=== PATIENT | female | born 1965 | race Caucasian/White ===

== ENCOUNTER 2019-09-13 15:44 | Inpatient (IN) | payer BC ==
[~2019-09-13] VITALS: Ht 167.6 cm; Wt 54.5 kg
[2019-09-13 16:26] LABS: MEAN CORPUSCULAR HEMOGLOBIN 29.9 pg (27.0-34.8); MEAN CORPUSCULAR HGB CONC 33.2 g/dL (32.4-35.8); MEAN PLATELET VOLUME 7.5 fL (7.4-10.4); PLATELET COUNT 572 x10^3/uL (130-400); RED CELL DISTRIBUTION WIDTH 13.5 % (9.6-15.2)
[2019-09-13 16:28] LABS: MD YES
[2019-09-13 16:37] LABS: ALBUMIN 2.4 g/dL (3.4-5.0); ANION GAP 9 mmol/L (5-15); CALCIUM 8.9 mg/dL (8.5-10.1); CHLORIDE 97 mmol/L (98-107); CREATININE 0.73 mg/dL (0.55-1.02)
[2019-09-13 16:59] LABS: BAND#(MANUAL) 0.71 x10^3/uL; BANDS%(MANUAL) 3 % (0-7); LYMPH#(MANUAL) 0.71 x10^3/uL (1-3.4); LYMPHS% (MANUAL) 3 % (22-44); MONOS#(MANUAL) 0.71 x10^3/uL (0.3-2.7); MONOS% (MANUAL) 3 % (2-9); SEG#(MANUAL) 21.39 x10^3/uL (1.8-6.8); SEGS% (MANUAL) 91 % (42-75)
[2019-09-13 17:02] LABS: <PLATELET ESTIMATE> INCREASED; <PLT MORPHOLOGY> NORMAL PLT MORPH; ANISOCYTOSIS 1+; POLYCHROMASIA 1+
[2019-09-13] MEDS ORDERED: SODIUM CHLORIDE 0.9% 1,000 ML IV ONE ×2 (17:47→19:02)
--- NOTE | 2019-09-13 17:49 | NUR ---
PT FEBRILE, TACHYCARDIC, TACHYPNEIC. IV STARTED AND NS BOLUS INFUSING PER JOCELINE VILLAR. NO ORDERS FOR ABX YET. Addendum: 09/13/19 at 1749 by HBENSON SPO2 89-90% ON RA. O2 APPLIED AT 2L NC. PT C/O PAIN TO R CHEST. HX OF PNA IN PAST.
--- NOTE | 2019-09-13 18:13 | NUR ---
ERP AT NOW.
[2019-09-13] MEDS ORDERED: CEFTRIAXONE PMX 1GM/50ML 50 ML IVPB ONE (18:30)
[2019-09-13] MEDS ORDERED: AZITHROMYCIN 500 MG in SODIUM CHLORIDE 0.9% 250 ML IVPB ONE (18:30)
[2019-09-13] MEDS ORDERED: ALBUTEROL/IPRATROPIUM 2.5MG/0.5MG, 3 ML NPPB ONE (18:30)
[2019-09-13] MEDS ORDERED: SODIUM CHLORIDE 0.9% 1,000ML IVBOLUS ONE (18:30)
[2019-09-13] MEDS ORDERED: IBUPROFEN 600 MG TABLET PO ONE (18:30)
[2019-09-13] MEDS ORDERED: CEFTRIAXONE PMX 1GM/50ML 50 ML ONE (18:35)
[2019-09-13] MEDS ORDERED: ALBUTEROL/IPRATROPIUM 2.5MG/0.5MG, 3 ML ONE (18:36)
[2019-09-13] MEDS ORDERED: IBUPROFEN 200 MG TABLET ONE (18:42)
--- NOTE | 2019-09-13 18:50 | NUR ---
BREATHING TX GIVEN BY RT.
--- NOTE | 2019-09-13 19:20 | NUR ---
HOSPITALIST AT NOW. Addendum: 09/13/19 at 2019 by MELISSA ADMITTING MD ADVISED TO HOLD 2ND LITER NS THAT WAS ORDERED.
[2019-09-13] MEDS ORDERED: SODIUM CHLORIDE FLUSH 10ML SYR IVF PRN (19:30)
[2019-09-13] MEDS ORDERED: SODIUM CHLORIDE 0.9% 1,000 ML IV SCH (20:45)
[2019-09-13] MEDS ORDERED: ENALAPRILAT 1.25 MG/ML, 2ML IVPush PRN (21:00)
[2019-09-13] MEDS ORDERED: LIDODERM 5% PATCH TD PRN (21:00)
[2019-09-13] MEDS ORDERED: DOCUSATE 100 MG CAPSULE PO PRN (21:00)
[2019-09-13 21:09] VITALS: BP 99/59
[2019-09-13] MEDS: GUAIFENESIN ER 600 MG TABLET PO SCH (21:31)
[2019-09-13] MEDS: ENOXAPARIN 40 MG/0.4 ML SQ SCH (21:32)
[2019-09-13] MEDS: TEMAZEPAM 15 MG CAPSULE PO PRN (23:02)
[2019-09-13] MEDS: ACETAMINOPHEN 325 MG TABLET PO PRN (23:02)
[2019-09-14 01:49] VITALS: BP 98/64
[2019-09-14] MEDS: ACETAMINOPHEN 325 MG TABLET PO PRN ×4 (05:06→23:45)
[2019-09-14 05:26] LABS: MEAN CORPUSCULAR HGB CONC 33.2 g/dL (32.4-35.8); MEAN CORPUSCULAR VOLUME 90.2 fL (80-100); MEAN PLATELET VOLUME 7.5 fL (7.4-10.4); PLATELET COUNT 501 x10^3/uL (130-400); RED BLOOD COUNT 3.64 x10^6/uL (3.82-5.3); RED CELL DISTRIBUTION WIDTH 13.4 % (9.6-15.2)
[2019-09-14 05:40] LABS: ANION GAP 6 mmol/L (5-15); CALCIUM 8.3 mg/dL (8.5-10.1); CHLORIDE 106 mmol/L (98-107)
[2019-09-14 05:55] LABS: BASOPHILS # (AUTO) 0.01 x10^3/uL (0-0.1); BASOPHILS % (AUTO) 0 % (0-1); EOSINOPHILS # (AUTO) 0.25 x10^3/uL (0-0.4); EOSINOPHILS % (AUTO) 1 % (1-7); LYMPHOCYTES # (AUTO) 1.54 x10^3/uL (1-3.4); LYMPHOCYTES % (AUTO) 9 % (22-44); MD SCAN; MONOCYTES # (AUTO) 1.32 x10^3/uL (0.2-0.8); MONOCYTES % (AUTO) 7 % (2-9); NEUTROPHILS # (AUTO) 15.06 x10^3/uL (1.8-6.8); NEUTROPHILS % (AUTO) 83 % (42-75)
[2019-09-14 06:39] VITALS: BP 105/68
[2019-09-14] MEDS: GUAIFENESIN ER 600 MG TABLET PO SCH ×2 (08:15→21:31)
[2019-09-14 13:35] VITALS: BP 107/57
[2019-09-14 17:38] VITALS: BP 133/70
[2019-09-14] MEDS: CEFTRIAXONE PMX 1GM/50ML 50 ML IV SCH (17:50)
[2019-09-14] MEDS: AZITHROMYCIN 500 MG in SODIUM CHLORIDE 0.9% 250 ML IV SCH (18:51)
[2019-09-14 19:13] VITALS: BP 106/56
[2019-09-14] MEDS: TEMAZEPAM 15 MG CAPSULE PO PRN (21:31)
[2019-09-14] MEDS: ENOXAPARIN 40 MG/0.4 ML SQ SCH (21:31)
[2019-09-14] MEDS: ONDANSETRON 2MG/ML, 2ML IVPush PRN (23:26)
[2019-09-15 04:32] VITALS: BP 100/63
[2019-09-15] MEDS: ONDANSETRON 2MG/ML, 2ML IVPush PRN ×3 (06:42→22:56)
[2019-09-15 08:10] VITALS: BP 90/57
[2019-09-15] MEDS: GUAIFENESIN ER 600 MG TABLET PO SCH ×2 (08:58→19:34)
[2019-09-15] MEDS: ACETAMINOPHEN 325 MG TABLET PO PRN ×3 (08:59→19:34)
[2019-09-15 14:31] VITALS: BP 98/57
[2019-09-15] MEDS: BENZONATATE 100 MG CAPSULE PO SCH ×2 (14:58→19:34)
[2019-09-15] MEDS ORDERED: ALBUTEROL SULFATE 2.5 MG/3 ML NPPB PRN (17:30)
[2019-09-15] MEDS: CEFTRIAXONE PMX 1GM/50ML 50 ML IV SCH (18:00)
[2019-09-15] MEDS: AZITHROMYCIN 500 MG in SODIUM CHLORIDE 0.9% 250 ML IV SCH (18:47)
[2019-09-15 19:30] VITALS: BP 110/66
[2019-09-15] MEDS: ENOXAPARIN 40 MG/0.4 ML SQ SCH (19:34)
[2019-09-15] MEDS: TEMAZEPAM 15 MG CAPSULE PO PRN (19:34)
[2019-09-16 00:48] VITALS: BP 112/64
[2019-09-16 00:51] VITALS: BP 112/56
[2019-09-16] MEDS: ACETAMINOPHEN 325 MG TABLET PO PRN ×4 (01:04→20:50)
[2019-09-16] MEDS ORDERED: FUROSEMIDE 20 MG/2 ML IV ONE (02:00)
[2019-09-16 02:28] LABS: BASOPHILS # (AUTO) 0.05 x10^3/uL (0-0.1); BASOPHILS % (AUTO) 1 % (0-1); EOSINOPHILS % (AUTO) 2 % (1-7); LYMPHOCYTES # (AUTO) 0.98 x10^3/uL (1-3.4); LYMPHOCYTES % (AUTO) 10 % (22-44); MD NO; MEAN CORPUSCULAR HEMOGLOBIN 29.5 pg (27.0-34.8); MEAN CORPUSCULAR HGB CONC 32.7 g/dL (32.4-35.8); MEAN CORPUSCULAR VOLUME 90.4 fL (80-100); MEAN PLATELET VOLUME 7.2 fL (7.4-10.4); MONOCYTES # (AUTO) 0.85 x10^3/uL (0.2-0.8); MONOCYTES % (AUTO) 8 % (2-9); NEUTROPHILS # (AUTO) 8.19 x10^3/uL (1.8-6.8); NEUTROPHILS % (AUTO) 80 % (42-75); PLATELET COUNT 487 x10^3/uL (130-400); RED BLOOD COUNT 3.26 x10^6/uL (3.82-5.3); RED CELL DISTRIBUTION WIDTH 13.9 % (9.6-15.2)
[2019-09-16 02:39] LABS: ANION GAP 6 mmol/L (5-15); CALCIUM 8.3 mg/dL (8.5-10.1); CHLORIDE 103 mmol/L (98-107); CREATININE 0.43 mg/dL (0.55-1.02)
[2019-09-16 02:49] LABS: TROPONIN I < 0.015 ng/mL (0.000-0.045)
[2019-09-16] MEDS: ONDANSETRON 2MG/ML, 2ML IVPush PRN ×2 (04:50→17:13)
[2019-09-16] MEDS ORDERED: POTASSIUM CHLORIDE 20 MEQ TAB.ER.PRT PO ONE (05:30)
[2019-09-16 06:46] LABS: RAPID INFLUENZA A Negative (Negative); RAPID INFLUENZA B Negative (Negative)
[2019-09-16 07:04] VITALS: BP 103/63
[2019-09-16] MEDS: BENZONATATE 100 MG CAPSULE PO SCH ×3 (09:19→20:50)
[2019-09-16] MEDS: GUAIFENESIN ER 600 MG TABLET PO SCH ×2 (09:19→20:50)
[2019-09-16] MEDS: POTASSIUM CHLORIDE 20 MEQ TAB.ER.PRT PO ONE ×2 (10:00→10:49)
[2019-09-16 13:07] VITALS: BP 99/62
[2019-09-16] MEDS: CEFTRIAXONE PMX 1GM/50ML 50 ML IV SCH (17:05)
[2019-09-16] MEDS: AZITHROMYCIN 500 MG in SODIUM CHLORIDE 0.9% 250 ML IV SCH (18:15)
[2019-09-16 19:11] VITALS: BP 94/53
[2019-09-16] MEDS: TEMAZEPAM 15 MG CAPSULE PO PRN ×2 (20:50→22:11)
[2019-09-16] MEDS: ENOXAPARIN 40 MG/0.4 ML SQ SCH (21:00)
[2019-09-17] MEDS: ONDANSETRON 2MG/ML, 2ML IVPush PRN ×3 (02:14→16:07)
[2019-09-17] MEDS: ACETAMINOPHEN 325 MG TABLET PO PRN ×4 (02:14→21:23)
[2019-09-17 02:23] VITALS: BP 117/79
[2019-09-17 05:52] LABS: ANION GAP 4 mmol/L (5-15); CALCIUM 8.6 mg/dL (8.5-10.1); CHLORIDE 104 mmol/L (98-107); CREATININE 0.37 mg/dL (0.55-1.02)
[2019-09-17 05:56] LABS: BASOPHILS # (AUTO) 0.04 x10^3/uL (0-0.1); BASOPHILS % (AUTO) 0 % (0-1); EOSINOPHILS # (AUTO) 0.18 x10^3/uL (0-0.4); EOSINOPHILS % (AUTO) 2 % (1-7); LYMPHOCYTES % (AUTO) 12 % (22-44); MD NO; MEAN CORPUSCULAR HEMOGLOBIN 30.1 pg (27.0-34.8); MEAN CORPUSCULAR HGB CONC 33.2 g/dL (32.4-35.8); MEAN CORPUSCULAR VOLUME 90.6 fL (80-100); MONOCYTES # (AUTO) 0.93 x10^3/uL (0.2-0.8); MONOCYTES % (AUTO) 11 % (2-9); NEUTROPHILS # (AUTO) 6.27 x10^3/uL (1.8-6.8); NEUTROPHILS % (AUTO) 75 % (42-75); PLATELET COUNT 586 x10^3/uL (130-400); RED BLOOD COUNT 3.37 x10^6/uL (3.82-5.3)
[2019-09-17 07:38] VITALS: BP 116/73
[2019-09-17] MEDS: GUAIFENESIN ER 600 MG TABLET PO SCH ×2 (09:31→20:05)
[2019-09-17] MEDS: BENZONATATE 100 MG CAPSULE PO SCH ×3 (09:31→20:05)
[2019-09-17 15:22] VITALS: BP 130/66
[2019-09-17 16:11] VITALS: BP 116/75
[2019-09-17] MEDS ORDERED: MORPHINE SULFATE 4 MG/ML, 1ML IVPush ONE (16:30)
[2019-09-17 17:19] LABS: TROPONIN I < 0.015 ng/mL (0.000-0.045)
[2019-09-17] MEDS: CEFTRIAXONE PMX 1GM/50ML 50 ML IV SCH (17:19)
[2019-09-17] MEDS: KETOROLAC 30 MG/1 ML IVPush PRN (17:19)
[2019-09-17] MEDS: AZITHROMYCIN 500 MG in SODIUM CHLORIDE 0.9% 250 ML IV SCH (20:04)
[2019-09-17] MEDS: ENOXAPARIN 40 MG/0.4 ML SQ SCH (20:05)
[2019-09-17] MEDS: TEMAZEPAM 15 MG CAPSULE PO PRN ×2 (20:05→21:23)
[2019-09-17 20:20] VITALS: BP 100/65
[2019-09-18 01:21] VITALS: BP 128/80
[2019-09-18] MEDS: KETOROLAC 30 MG/1 ML IVPush PRN ×4 (01:25→20:09)
[2019-09-18] MEDS: ACETAMINOPHEN 325 MG TABLET PO PRN ×3 (05:36→18:29)
[2019-09-18 05:41] LABS: BASOPHILS # (AUTO) 0.02 x10^3/uL (0-0.1); BASOPHILS % (AUTO) 0 % (0-1); EOSINOPHILS # (AUTO) 0.31 x10^3/uL (0-0.4); EOSINOPHILS % (AUTO) 4 % (1-7); LYMPHOCYTES # (AUTO) 0.95 x10^3/uL (1-3.4); LYMPHOCYTES % (AUTO) 13 % (22-44); MD NO; MEAN CORPUSCULAR HEMOGLOBIN 29.7 pg (27.0-34.8); MEAN CORPUSCULAR HGB CONC 32.6 g/dL (32.4-35.8); MEAN PLATELET VOLUME 6.9 fL (7.4-10.4); MONOCYTES # (AUTO) 0.76 x10^3/uL (0.2-0.8); MONOCYTES % (AUTO) 10 % (2-9); NEUTROPHILS % (AUTO) 72 % (42-75); PLATELET COUNT 577 x10^3/uL (130-400); RED BLOOD COUNT 3.63 x10^6/uL (3.82-5.3); RED CELL DISTRIBUTION WIDTH 13.8 % (9.6-15.2)
[2019-09-18] MEDS: BENZONATATE 100 MG CAPSULE PO SCH ×3 (08:06→20:08)
[2019-09-18] MEDS: ONDANSETRON 2MG/ML, 2ML IVPush PRN ×3 (08:07→20:09)
[2019-09-18] MEDS: GUAIFENESIN ER 600 MG TABLET PO SCH ×2 (08:07→20:09)
[2019-09-18 08:11] VITALS: BP 106/70
[2019-09-18 14:11] VITALS: BP 119/71
[2019-09-18] MEDS ORDERED: OMNIPAQUE 350 MG/ML, 100ML BOTTLE ONE (17:07)
[2019-09-18] MEDS: CEFTRIAXONE PMX 1GM/50ML 50 ML IV SCH (18:17)
[2019-09-18 20:00] VITALS: BP 123/80
[2019-09-18] MEDS: AZITHROMYCIN 500 MG in SODIUM CHLORIDE 0.9% 250 ML IV SCH (20:07)
[2019-09-18] MEDS: ENOXAPARIN 40 MG/0.4 ML SQ SCH (20:08)
[2019-09-18] MEDS: TEMAZEPAM 15 MG CAPSULE PO PRN ×2 (20:08→20:10)
[2019-09-19 00:04] VITALS: BP 122/80
[2019-09-19] MEDS ORDERED: BENZONATATE 100 MG CAPSULE PO ONE (00:30)
[2019-09-19] MEDS: KETOROLAC 30 MG/1 ML IVPush PRN ×4 (01:33→21:52)
[2019-09-19] MEDS: ONDANSETRON 2MG/ML, 2ML IVPush PRN ×4 (01:33→21:52)
[2019-09-19] MEDS: ACETAMINOPHEN 325 MG TABLET PO PRN ×2 (01:33→08:41)
[2019-09-19 01:38] VITALS: BP 129/85
[2019-09-19 08:09] VITALS: BP 112/72
[2019-09-19] MEDS: BENZONATATE 100 MG CAPSULE PO SCH ×3 (08:41→20:42)
[2019-09-19] MEDS: GUAIFENESIN ER 600 MG TABLET PO SCH ×2 (08:41→20:42)
[2019-09-19 14:21] VITALS: BP 131/76
[2019-09-19] MEDS: AZITHROMYCIN 500 MG in SODIUM CHLORIDE 0.9% 250 ML IV SCH (18:38)
[2019-09-19] MEDS: CEFTRIAXONE PMX 1GM/50ML 50 ML IV SCH (20:41)
[2019-09-19] MEDS: ENOXAPARIN 40 MG/0.4 ML SQ SCH (20:41)
[2019-09-19] MEDS: TEMAZEPAM 15 MG CAPSULE PO PRN ×2 (20:42→21:51)
[2019-09-19 20:47] VITALS: BP 132/81
[2019-09-20 03:31] VITALS: BP 122/75
[2019-09-20] MEDS: ONDANSETRON 2MG/ML, 2ML IVPush PRN ×2 (03:43→09:59)
[2019-09-20] MEDS: KETOROLAC 30 MG/1 ML IVPush PRN ×2 (03:43→09:59)
[2019-09-20 08:05] VITALS: BP 126/79
[2019-09-20] MEDS: BENZONATATE 100 MG CAPSULE PO SCH ×2 (08:14→14:59)
[2019-09-20] MEDS: GUAIFENESIN ER 600 MG TABLET PO SCH (08:14)
[2019-09-20] MEDS ORDERED: BENZ-17 PO (10:27)
== END 2019-09-20 15:05 | disposition home or self-care (01) | DRG 871 ==
LOC: ED 20:05 → EDIP 20:06 → 3N 20:45
PROVIDERS: ADMIT Family Medicine; ATTEND Family Medicine
DX: A41.9 Sepsis, unspecified organism (principal); J15.9 Unspecified bacterial pneumonia; J96.01 Acute respiratory failure with hypoxia; E87.1 Hypo-osmolality and hyponatremia; E87.6 Hypokalemia; J06.9 Acute upper respiratory infection, unspecified; Z82.49 Family history of ischemic heart disease and other diseases of the circulatory system; Z90.710 Acquired absence of both cervix and uterus; Z87.891 Personal history of nicotine dependence; R73.9 Hyperglycemia, unspecified; Z86.19 Personal history of other infectious and parasitic diseases
CPT/HCPCS: 36415; 71045; 71046; 71275; 80048; 82040; 83036; 83605; 83735; 84145; 84443; 84484; 85025; 87040; 87070; 87205; 87400; 87486; 87581; 87633; 87798; 93005; 94640; 96361; 96365; 96367; G0378; J0456; J0696; J1650; J1885; J2405; Q9967; J2270; J7030; J7050

== ENCOUNTER 2019-12-28 00:09 | Inpatient (IN) | payer BC ==
[~2019-12-28] VITALS: Ht 165.1 cm; Wt 58.5 kg
[~2019-12-28 00:09] MED LIST: BENZ-17 PO
[2019-12-28] MEDS ORDERED: MORPHINE SULFATE 4 MG/ML, 1ML ONE (00:28)
[2019-12-28] MEDS ORDERED: ACETAMINOPHEN 500 MG TABLET ONE (00:29)
[2019-12-28] MEDS ORDERED: ONDANSETRON 2MG/ML, 2ML ONE (00:29)
[2019-12-28] MEDS ORDERED: ACETAMINOPHEN 325 MG TABLET PO ONE (00:30)
[2019-12-28] MEDS ORDERED: MORPHINE SULFATE 4 MG/ML, 1ML IVPush PRN (00:30)
[2019-12-28] MEDS ORDERED: ONDANSETRON 2MG/ML, 2ML IVPush ONE (00:30)
[2019-12-28] MEDS ORDERED: SODIUM CHLORIDE 0.9% 1,000ML IVBOLUS ONE (00:30)
--- NOTE | 2019-12-28 00:50 | NUR ---
THIS PT WAS BIB [facility] FROM HOME. THIS PT WAS ADMITTED FROM 09/12-09/19 FOR DOUBLE PNA AND SEPSIS. AT 1800 TODAY PT COUGHED UP IKE RED BLOOD. PT STATES SHE'S BEEN HAVING A BALDERRAMA FOR A COUPLE DAYS. PT STATES SHE GOT CP AFTER COUGHING EPISODE TONIGHT. CURRENTLY PT STATES RELEIF FROM SOB WITH 2L NC. WHEEZES HEARD INTERMITTENTLY. VSS. NO SIGNS OF ACUTE DISTRESS. WILL CONTINUE TO MONITOR.
[2019-12-28 00:55] LABS: BASOPHILS # (AUTO) 0.03 x10^3/uL (0-0.1); BASOPHILS % (AUTO) 0 % (0-1); EOSINOPHILS # (AUTO) 0.06 x10^3/uL (0-0.4); EOSINOPHILS % (AUTO) 0 % (1-7); LYMPHOCYTES # (AUTO) 1.49 x10^3/uL (1-3.4); LYMPHOCYTES % (AUTO) 9 % (22-44); MD NO; MEAN CORPUSCULAR HEMOGLOBIN 30.4 pg (27.0-34.8); MEAN CORPUSCULAR HGB CONC 32.7 g/dL (32.4-35.8); MEAN CORPUSCULAR VOLUME 92.9 fL (80-100); MEAN PLATELET VOLUME 7.3 fL (7.4-10.4); MONOCYTES # (AUTO) 0.76 x10^3/uL (0.2-0.8); MONOCYTES % (AUTO) 5 % (2-9); NEUTROPHILS # (AUTO) 13.62 x10^3/uL (1.8-6.8); NEUTROPHILS % (AUTO) 85 % (42-75); PLATELET COUNT 670 x10^3/uL (130-400); RED BLOOD COUNT 4.19 x10^6/uL (3.82-5.3); RED CELL DISTRIBUTION WIDTH 14.9 % (9.6-15.2)
[2019-12-28] MEDS ORDERED: CEFTRIAXONE PMX 1GM/50ML 50 ML IV ONE (01:00)
[2019-12-28] MEDS ORDERED: AZITHROMYCIN 500 MG in SODIUM CHLORIDE 0.9% 250 ML IV ONE (01:00)
[2019-12-28 01:03] LABS: ALBUMIN 2.4 g/dL (3.4-5.0); ANION GAP 7 mmol/L (5-15); CALCIUM 8.9 mg/dL (8.5-10.1); CHLORIDE 104 mmol/L (98-107); CREATININE 0.56 mg/dL (0.55-1.02)
[2019-12-28 01:07] LABS: TROPONIN I < 0.015 ng/mL (0.000-0.045)
[2019-12-28] MEDS ORDERED: CEFTRIAXONE PMX 1GM/50ML 50 ML ONE (01:07)
--- NOTE | 2019-12-28 01:09 | NUR ---
PT TO IMAGING.
[2019-12-28] MEDS ORDERED: OMNIPAQUE 350 MG/ML, 75ML BOTTLE ONE (01:16)
--- NOTE | 2019-12-28 01:33 | NUR ---
ABX ADMINSTERED AFTER BLOOD CULTURES DRAWN X2.
--- NOTE | 2019-12-28 01:41 | NUR ---
PT SITTING IN BED. VSS, RESPIRATIONS EVEN AND UNLABORED, PT WATCHING TV, NO SIGNS OF ACUTE DISTRESS. WILL CONTINUE TO MONITOR.
--- NOTE | 2019-12-28 01:56 | NUR ---
DR. GOLDSMITH IN TO SWAB PT. FOR COVID R/O. O2 REPLACED AT 2L VIA NC FOR DESAT TO 88%. PT. AWARE OF PLAN FOR ADMISSION.
--- NOTE | 2019-12-28 02:31 | NUR ---
PT. TRANSFERED SELF TO [facility] [place] FOR URINATION; STEADY ON HER OWN FEET. PT. BACK TO [facility]; MONITORS REPLACED. MEDICATED PER MAR. DENIES NEEDS AT THIS TIME. ALL SAFETY MEASURES OBSERVED.
[2019-12-28] MEDS: CEFTRIAXONE PMX 1GM/50ML 50 ML IV SCH (02:45)
[2019-12-28] MEDS ORDERED: DOCUSATE 100 MG CAPSULE PO PRN (03:00)
[2019-12-28] MEDS ORDERED: ACETAMINOPHEN 325 MG TABLET PO PRN (03:00)
[2019-12-28] MEDS ORDERED: hydrALAzine 20 MG/ML, 1ML IVPush PRN (03:00)
[2019-12-28] MEDS ORDERED: GUAIFENESIN/DM 200-20MG, 10ML UDC PO PRN (03:00)
[2019-12-28] MEDS ORDERED: AZITHROMYCIN 500 MG in SODIUM CHLORIDE 0.9% 250 ML IV SCH (03:00)
[2019-12-28] MEDS ORDERED: LACTATED RINGERS 1,000 ML IV SCH (03:00)
--- NOTE | 2019-12-28 03:14 | NUR ---
REPORT GIVEN TO JOSHUA CAZARES RN.
--- NOTE | 2019-12-28 03:31 | NUR ---
PT LAYING IN BED, WATCHING TV, NO SIGNS OF DISTRESS, CALL LIGHT WITHIN REACH.
[2019-12-28] MEDS ORDERED: ENOXAPARIN 30 MG/0.3 ML ONE (03:54)
[2019-12-28 04:09] VITALS: BP 108/70
[2019-12-28] MEDS: ENOXAPARIN 40 MG/0.4 ML SQ SCH (04:15)
[2019-12-28] MEDS: KETOROLAC 30 MG/1 ML IV PRN ×3 (04:15→20:13)
[2019-12-28 08:35] VITALS: BP 117/75
[2019-12-28] MEDS: ACETAMINOPHEN 325 MG TABLET PO PRN ×2 (09:30→19:53)
[2019-12-28 10:51] LABS: MICROSCOPIC NOT IND
[2019-12-28 12:11] VITALS: BP 105/69
[2019-12-28] MEDS: ONDANSETRON 2MG/ML, 2ML IVPush PRN ×2 (13:00→20:13)
[2019-12-28] MEDS: LACTATED RINGERS 1,000 ML IV SCH (17:14)
[2019-12-28 18:49] VITALS: BP 108/73
[2019-12-28] MEDS: MELATONIN 5 MG TABLET PO SCH (19:53)
[2019-12-29 00:49] VITALS: BP 100/62
[2019-12-29] MEDS: CEFTRIAXONE PMX 1GM/50ML 50 ML IV SCH (02:48)
[2019-12-29] MEDS: ENOXAPARIN 40 MG/0.4 ML SQ SCH (02:48)
[2019-12-29] MEDS: ACETAMINOPHEN 325 MG TABLET PO PRN ×2 (02:58→16:44)
[2019-12-29] MEDS: KETOROLAC 30 MG/1 ML IV PRN ×3 (02:59→19:39)
[2019-12-29 05:48] LABS: ANION GAP 5 mmol/L (5-15); CALCIUM 8.7 mg/dL (8.5-10.1); CHLORIDE 109 mmol/L (98-107)
[2019-12-29 05:51] LABS: CREATININE 0.55 mg/dL (0.55-1.02)
[2019-12-29 06:11] LABS: BASOPHILS # (AUTO) 0.04 x10^3/uL (0-0.1); BASOPHILS % (AUTO) 1 % (0-1); EOSINOPHILS # (AUTO) 0.25 x10^3/uL (0-0.4); EOSINOPHILS % (AUTO) 4 % (1-7); LYMPHOCYTES # (AUTO) 1.89 x10^3/uL (1-3.4); LYMPHOCYTES % (AUTO) 26 % (22-44); MD NO; MEAN CORPUSCULAR HEMOGLOBIN 30.9 pg (27.0-34.8); MEAN CORPUSCULAR HGB CONC 32.6 g/dL (32.4-35.8); MEAN CORPUSCULAR VOLUME 94.5 fL (80-100); MEAN PLATELET VOLUME 7.3 fL (7.4-10.4); MONOCYTES # (AUTO) 0.43 x10^3/uL (0.2-0.8); MONOCYTES % (AUTO) 6 % (2-9); NEUTROPHILS % (AUTO) 64 % (42-75); PLATELET COUNT 571 x10^3/uL (130-400); RED BLOOD COUNT 3.69 x10^6/uL (3.82-5.3)
[2019-12-29 07:40] VITALS: BP 107/62
[2019-12-29] MEDS: LACTATED RINGERS 1,000 ML IV SCH ×2 (07:49→23:25)
[2019-12-29 12:31] VITALS: BP 126/78
[2019-12-29 18:36] VITALS: BP 117/70
[2019-12-29] MEDS: ONDANSETRON 2MG/ML, 2ML IVPush PRN (19:39)
[2019-12-29] MEDS: MELATONIN 5 MG TABLET PO SCH (20:49)
[2019-12-30 01:28] VITALS: BP 118/70
[2019-12-30] MEDS: ENOXAPARIN 40 MG/0.4 ML SQ SCH (03:23)
[2019-12-30] MEDS: CEFTRIAXONE PMX 1GM/50ML 50 ML IV SCH (03:23)
[2019-12-30] MEDS: KETOROLAC 30 MG/1 ML IV PRN ×4 (03:27→23:38)
[2019-12-30 07:49] VITALS: BP 138/75
[2019-12-30] MEDS: ONDANSETRON 2MG/ML, 2ML IVPush PRN ×2 (10:25→16:57)
[2019-12-30 14:24] VITALS: BP 119/76
[2019-12-30] MEDS: MELATONIN 5 MG TABLET PO SCH (21:00)
[2019-12-30 21:23] VITALS: BP 121/73
[2019-12-31 01:38] VITALS: BP 120/73
[2019-12-31] MEDS: ENOXAPARIN 40 MG/0.4 ML SQ SCH (02:45)
[2019-12-31] MEDS: CEFTRIAXONE PMX 1GM/50ML 50 ML IV SCH (03:06)
[2019-12-31 04:58] LABS: BASOPHILS # (AUTO) 0.05 x10^3/uL (0-0.1); BASOPHILS % (AUTO) 1 % (0-1); EOSINOPHILS # (AUTO) 0.29 x10^3/uL (0-0.4); EOSINOPHILS % (AUTO) 4 % (1-7); LYMPHOCYTES # (AUTO) 1.51 x10^3/uL (1-3.4); LYMPHOCYTES % (AUTO) 20 % (22-44); MD NO; MEAN CORPUSCULAR HEMOGLOBIN 30.5 pg (27.0-34.8); MEAN CORPUSCULAR HGB CONC 32.4 g/dL (32.4-35.8); MEAN PLATELET VOLUME 7.2 fL (7.4-10.4); MONOCYTES # (AUTO) 0.38 x10^3/uL (0.2-0.8); MONOCYTES % (AUTO) 5 % (2-9); NEUTROPHILS # (AUTO) 5.28 x10^3/uL (1.8-6.8); NEUTROPHILS % (AUTO) 70 % (42-75); PLATELET COUNT 612 x10^3/uL (130-400); RED BLOOD COUNT 3.91 x10^6/uL (3.82-5.3); RED CELL DISTRIBUTION WIDTH 14.9 % (9.6-15.2)
[2019-12-31 05:10] LABS: ALANINE AMINOTRANSFERASE 14 U/L (12-78); ALBUMIN 2.1 g/dL (3.4-5.0); ANION GAP 3 mmol/L (5-15); CALCIUM 8.5 mg/dL (8.5-10.1); CHLORIDE 105 mmol/L (98-107); CREATININE 0.57 mg/dL (0.55-1.02)
[2019-12-31 05:12] LABS: ALKALINE PHOSPHATASE 102 U/L (45-117); BILIRUBIN,TOTAL 0.1 mg/dL (0.2-1.0); TOTAL PROTEIN 7.3 g/dL (6.4-8.2)
[2019-12-31 07:31] VITALS: BP 128/83
[2019-12-31] MEDS: LACTATED RINGERS 1,000 ML IV SCH (08:10)
[2019-12-31 13:27] VITALS: BP_SYST 137
[2019-12-31] MEDS ORDERED: LEVO750T26 PO (13:31)
== END 2019-12-31 16:54 | disposition home or self-care (01) | DRG 871 ==
LOC: ED 02:24 → EDIP 02:59 → 4NW 03:51 → 3N 12-29 19:47
PROVIDERS: ADMIT Hospitalist; ATTEND Internal Medicine
DX: A41.9 Sepsis, unspecified organism (principal); J18.9 Pneumonia, unspecified organism; J96.01 Acute respiratory failure with hypoxia; E87.6 Hypokalemia; N20.0 Calculus of kidney; B19.20 Unspecified viral hepatitis C without hepatic coma; Z82.49 Family history of ischemic heart disease and other diseases of the circulatory system; Z87.891 Personal history of nicotine dependence; Z90.710 Acquired absence of both cervix and uterus; Z03.818 Encounter for observation for suspected exposure to other biological agents ruled out
CPT/HCPCS: 36415; 71045; 71275; 80048; 80053; 81003; 82040; 83036; 83605; 83735; 83880; 84100; 84145; 84484; 85025; 87040; 87070; 87205; 87449; 87486; 87581; 87633; 87798; 93005; 96361; 96374; 99285; G0378; J0456; J0696; J1650; J1885; J2405; Q9967; J2270; J7030; J7050; J7120; U0001-CS